=== PATIENT | male | born 1990 | race African-American/Black ===

== ENCOUNTER 2020-02-08 10:01 | Emergency (ER) | payer MEDICAID, OTHER ==
[~2020-02-08] VITALS: Ht 182.9 cm; Wt 77.0 kg
[2020-02-08] MEDS ORDERED: ACETAMINOPHEN WITH CODEINE 300/30MG TABLET PO STA (10:42)
[2020-02-08 10:47] VITALS: BP 135/86
== END 2020-02-08 12:19 | disposition home or self-care (01) ==
LOC: ER 10:01
DX: M25.572 Pain in left ankle and joints of left foot (principal); M10.9 Gout, unspecified; Y93.67 Activity, basketball
CPT/HCPCS: 73610; 99283

== ENCOUNTER 2020-10-26 06:48 | Emergency (ER) | payer OTHER ==
[~2020-10-26] VITALS: Ht 182.9 cm; Wt 73.0 kg
[2020-10-26] MEDS ORDERED: IBUPROFEN 600MG TABLET PO STA (08:25)
[2020-10-26 08:46] VITALS: BP 134/56
[2020-10-26] MEDS ORDERED: NAPR-681 PO (09:54)
== END 2020-10-26 10:15 | disposition home or self-care (01) ==
LOC: ER 06:48
DX: M25.561 Pain in right knee (principal)
CPT/HCPCS: 73562; 99283; Z7610